=== PATIENT | male | born 1955 | race Caucasian/White ===

== ENCOUNTER → 2018-07-27 12:17 | Outpatient (CLI) | payer BC, SELFPAY ==
[2018-07-27 16:08] LABS: Rubella Antibody IgG > 350.0 IU/mL (>15)
[2018-07-28 13:48] LABS: Rubeola Measles IgG > 300.00 AU/mL (< 25.00)
[2018-07-29 13:50] LABS: Hepatitis B Surf Ab Qualitativ Reactive (Nonreactive)
[2018-07-29 14:45] LABS: Mumps Virus IgG Antibody > 300.00 AU/mL (< 9.00)
== END ==
PROVIDERS: Visit Provider Physician Assistant
DX: Z02.1 Encounter for pre-employment examination (principal)
CPT/HCPCS: 36415; 86706; 86735; 86762; 86765; 86787

== ENCOUNTER → 2019-01-18 06:41 | Outpatient (CLI) | payer OTHER, SELFPAY ==
--- NOTE | 2019-01-18 | DI.CT.S_ITS ---
PROCEDURE: CT ORBIT BI WO CON INDICATIONS: Atrophy of unspecified orbit TECHNIQUE: Noncontrast 2.5 mm axial images acquired through the orbits, with coronal and sagittal reformats. For radiation dose reduction, the following was used: automated exposure control, adjustment of mA and/or kV according to patient size. COMPARISON: None. FINDINGS: Image quality: Excellent. 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 Posterior to the implant, there is the optic nerve seen as well as normal appearing orbital fat and extraocular musculature. No masses are seen. No metallic foreign bodies. The optic nerves are normal in size. No retrobulbar masses or fat abnormalities. The extra-ocular muscles are normal and symmetrical in appearance. Lacrimal glands are normal in size. Optic chiasm is normal. Intracranial: Visualized portions of the cerebral hemispheres, brainstem, and spinal cord are normal. Bones and sinuses: Visualized calvarium and facial bones appear intact. Visualized sinuses and mastoids are clear. There is mild to moderate leftward nasal septal deviation incidentally noted. 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 Normal appearing orbital contents can be seen posterior to the prosthesis. Dictated by: Thierry Bailey M.D. on 01/18/2019 at 8:38 Approved by: Thierry Bailey M.D. on 01/18/2019 at 8:40
== END ==
PROVIDERS: PCP Internal Medicine; Visit Provider Ophthalmology
DX: H05.3 Deformity of orbit (principal); Z97.0 Presence of artificial eye
CPT/HCPCS: 70480

== ENCOUNTER → 2019-06-08 13:49 | Outpatient (CLI) | payer OTHER, SELFPAY | PROVIDERS: PCP Internal Medicine | DX: Z23 Encounter for immunization (principal) | CPT/HCPCS: 90471; 90686 ==

== ENCOUNTER → 2020-02-27 07:10 | Outpatient (CLI) | payer OTHER, MEDICARE, SELFPAY ==
[2020-02-27 08:49] LABS: COVID19 -Nasal RAPID Negative (Negative)
== END ==
PROVIDERS: PCP Internal Medicine; Referring Provider Ophthalmology; Visit Provider Ophthalmology
DX: Z11.59 Encounter for screening for other viral diseases (principal)
CPT/HCPCS: 87635

== ENCOUNTER → 2020-06-04 14:01 | Outpatient (CLI) | payer OTHER, MEDICARE, SELFPAY | PROVIDERS: PCP Internal Medicine; Referring Provider Internal Medicine; Visit Provider Internal Medicine | DX: Z23 Encounter for immunization (principal) | CPT/HCPCS: 90471; 90662 ==